=== PATIENT | female | born 1995 | race Caucasian/White ===

== ENCOUNTER → 2016-12-04 | Outpatient (CLI) | payer BC, OTHER ==
[~2016-12-04] MED LIST: BIRTH CONTROL PO; BUSPAR5 MG PO; CLEOCIN HC150 MG/CAP PO; HYDROCODONE LIQUID; KLONOPIN2 MG PO; NO HOME MEDICATIONS; ZOFRAN 4MG T4 MG/TAB PO
== END ==
LOC: BHSO 14:15
DX: F41.1 Generalized anxiety disorder (principal)

== ENCOUNTER → 2017-01-23 | Outpatient (CLI) | payer BC, OTHER | LOC: BHSO 14:33 | DX: F90.0 Attention-deficit hyperactivity disorder, predominantly inattentive type (principal) ==

== ENCOUNTER → 2017-06-26 | Outpatient (CLI) | payer BC ==
[~2017-06-26] MED LIST changes: +BUSPAR10 MG PO; +GLUCOPHAGE XR500 M1 PO; +MOTRIN 600600 MG/TAB PO; +PERCOCET 325 MG1 TA2 PO; +PRENATAL MVI; +TYLENOL 500MG500 MG
== END ==
LOC: BHSO 09:18
DX: F41.1 Generalized anxiety disorder (principal)

== ENCOUNTER 2017-09-09 17:45 | Observation (INO) | payer BC ==
[~2017-09-09] VITALS: Ht 162.6 cm; Wt 68.6 kg
[~2017-09-09 17:45] MED LIST changes: -BUSPAR10 MG PO; -GLUCOPHAGE XR500 M1 PO; -MOTRIN 600600 MG/TAB PO; -PERCOCET 325 MG1 TA2 PO; -PRENATAL MVI; -TYLENOL 500MG500 MG
[2017-09-09] MEDS ORDERED: GLUCOPHAGE XR500 M1 PO (17:51)
[2017-09-09] MEDS ORDERED: BUSPAR10 MG PO (17:52)
[2017-09-09] MEDS ORDERED: TYLENOL 500MG500 MG (18:07)
[2017-09-09 18:46] LABS: COLLECTION METHOD CLEAN CATCH
[2017-09-09 18:49] LABS: BASO % 0.5 % (0.0-2.0); EOS # 0.2 (0.0-0.7); EOS % 1.9 % (0-4.0); GRAN # 5.2 (1.4-6.5); GRAN % 64.4 % (42.2-75.2); HEMATOCRIT 39.8 % (37.0-47.0); HEMOGLOBIN 13.7 g/dl (12.5-16.0); LYMPH # 1.9 (1.2-3.4); LYMPH % 23.1 % (20.0-51.0); MEAN CELL VOLUME 87 fl (80.0-100.0); MEAN CORPUSCULAR HEMOGLOBIN 30 pg (27.0-31.0); MEAN CORPUSCULAR HGB CONC 34 g/dl (33.0-37.0); MEAN PLATELET VOLUME 11.9 fl (7.4-10.4); MONO # 0.8 (0.1-0.6); MONO % 9.9 % (1.7-9.3); PLATELET COUNT 179 K/mm3 (130-400)
[2017-09-09 18:58] LABS: AMORPHOUS CRYSTAL Present /uL; PH 8 (5-8); SQUAMOUS EPITHELIAL 0-2 /hpf; URINE APPEARANCE Cloudy; URINE BACTERIA Rare /hpf; URINE BILIRUBIN Negative (NEGATIVE); URINE BLOOD Negative (NEGATIVE); URINE COLOR Yellow; URINE GLUCOSE Negative (NEGATIVE); URINE KETONE Negative (NEGATIVE); URINE LEUKOCYTE ESTERASE Negative (NEGATIVE); URINE PROTEIN(semi-quant) Negative (NEGATIVE); URINE RBC 0-2 /hpf; URINE UROBILINOGEN Negative (NEGATIVE)
[2017-09-09 19:00] LABS: ADJUSTED CALCIUM 8.9 mg/dL (8.4-10.2); ALBUMIN 4.2 gm/dL (3.5-5.0); BILIRUBIN,TOTAL 0.3 mg/dL (0.0-1.0); CALCIUM 9.1 mg/dL (8.4-10.2); CREATININE, serum 0.65 mg/dL (0.52-1.25); POTASSIUM 3.8 mmol/L (3.4-5.0); TOTAL PROTEIN 6.9 gm/dL (6.4-8.2)
[2017-09-09 21:00] VITALS: BP 121/73; PULSE 85; TEMP 98.2
[2017-09-10] VITALS: BP 106/59; PULSE 74
[2017-09-10 04:00] VITALS: BP 106/51; PULSE 71; TEMP 98.3
[2017-09-10 05:04] LABS: BASO % 0.4 % (0.0-2.0); EOS # 0.1 (0.0-0.7); EOS % 1.9 % (0-4.0); GRAN # 4.7 (1.4-6.5); HEMOGLOBIN 12.4 g/dl (12.5-16.0); LYMPH # 1.9 (1.2-3.4); LYMPH % 24.6 % (20.0-51.0); MEAN CELL VOLUME 88 fl (80.0-100.0); MEAN CORPUSCULAR HEMOGLOBIN 30 pg (27.0-31.0); MEAN CORPUSCULAR HGB CONC 34 g/dl (33.0-37.0); MEAN PLATELET VOLUME 11.5 fl (7.4-10.4); MONO # 0.7 (0.1-0.6); MONO % 9.8 % (1.7-9.3); PLATELET COUNT 161 K/mm3 (130-400); RED BLOOD COUNT 4.19 M/mm3 (4.10-5.30); WHITE BLOOD COUNT 7.5 K/mm3 (4.8-10.8)
[2017-09-10 08:30] VITALS: BP 107/58; PULSE 65; TEMP 98
== END 2017-09-10 13:45 | disposition home or self-care (01) ==
LOC: COL.ER 17:45 → OB 20:37
PROVIDERS: Emergency Medicine; Obstetrics & Gynecology
DX: O26.891 Other specified pregnancy related conditions, first trimester (principal); R10.2 Pelvic and perineal pain; O99.341 Other mental disorders complicating pregnancy, first trimester; F41.9 Anxiety disorder, unspecified; E28.2 Polycystic ovarian syndrome; Z90.49 Acquired absence of other specified parts of digestive tract; Z87.891 Personal history of nicotine dependence; Z83.3 Family history of diabetes mellitus; Z82.49 Family history of ischemic heart disease and other diseases of the circulatory system; Z80.3 Family history of malignant neoplasm of breast
CPT/HCPCS: G0378; J1170; J3010; J7030

== ENCOUNTER 2018-03-19 23:54 | Outpatient (CLI) | payer BC, MEDICAID ==
[~2018-03-19] VITALS: Ht 165.1 cm; Wt 79.5 kg
[~2018-03-19 23:54] MED LIST changes: +BUSPAR10 MG PO; +GLUCOPHAGE XR500 M1 PO; +TYLENOL 500MG500 MG
[2018-03-20 00:15] VITALS: BP 128/79; PULSE 85; TEMP 98.4
[2018-03-20 00:30] VITALS: BP 112/62; PULSE 80
[2018-03-20 01:29] VITALS: BP 128/79; PULSE 85; TEMP 98.4
== END 2018-03-20 01:13 | disposition home or self-care (01) ==
LOC: LDRO 23:54
DX: O62.9 Abnormality of forces of labor, unspecified (principal); Z3A.31 31 weeks gestation of pregnancy

== ENCOUNTER 2018-04-11 20:27 | Outpatient (CLI) | payer BC, MEDICAID ==
[~2018-04-11] VITALS: Ht 162.6 cm; Wt 82.3 kg
[2018-04-11] MEDS ORDERED: PRENATAL MVI (20:53)
[2018-04-11 21:30] VITALS: BP 122/69; PULSE 96; TEMP 97.5
[2018-04-11 22:21] LABS: COLLECTION METHOD CLEAN CATCH
[2018-04-11 22:26] LABS: PH 7 (5-8); SQUAMOUS EPITHELIAL 0-2 /hpf; URINE APPEARANCE Clear; URINE BACTERIA Rare /hpf; URINE BILIRUBIN Negative (NEGATIVE); URINE BLOOD Negative (NEGATIVE); URINE COLOR Colorless; URINE GLUCOSE Negative (NEGATIVE); URINE KETONE Negative (NEGATIVE); URINE LEUKOCYTE ESTERASE Negative (NEGATIVE); URINE NITRATE Negative (NEGATIVE); URINE PROTEIN(semi-quant) Negative (NEGATIVE); URINE RBC None Seen /hpf; URINE UROBILINOGEN Negative (NEGATIVE); URINE WBC 0-2 /hpf
[2018-04-11 22:31] VITALS: BP 119/66; PULSE 96
== END 2018-04-11 22:30 | disposition home or self-care (01) ==
LOC: LDRO 20:27
PROVIDERS: Obstetrics & Gynecology
DX: O99.89 Other specified diseases and conditions complicating pregnancy, childbirth and the puerperium (principal); R10.9 Unspecified abdominal pain; Z3A.34 34 weeks gestation of pregnancy

== ENCOUNTER 2018-04-29 15:24 | Inpatient (IN) | payer BC, MEDICAID ==
[2018-04-29] VITALS (19 sets, daily range): BP systolic 111–137; BP diastolic 57–78; PULSE 70–108; TEMP 98.3–98.6
[~2018-04-29] VITALS: Ht 162.6 cm; Wt 85.0 kg
[~2018-04-29 15:24] MED LIST changes: +PRENATAL MVI
[2018-04-29 16:47] LABS: BASO % 0.1 % (0.0-2.0); EOS % 0.4 % (0-4.0); GRAN # 7.6 (1.4-6.5); GRAN % 73.8 % (42.2-75.2); HEMOGLOBIN 10.7 g/dl (12.5-16.0); LYMPH # 1.5 (1.2-3.4); LYMPH % 14.6 % (20.0-51.0); MEAN CELL VOLUME 79 fl (80.0-100.0); MEAN CORPUSCULAR HEMOGLOBIN 26 pg (27.0-31.0); MEAN CORPUSCULAR HGB CONC 32 g/dl (33.0-37.0); MEAN PLATELET VOLUME 12.5 fl (7.4-10.4); MONO # 1.1 (0.1-0.6); MONO % 10.2 % (1.7-9.3); PLATELET COUNT 179 K/mm3 (130-400); RED BLOOD COUNT 4.17 M/mm3 (4.10-5.30); REDCELL DISTRIBUTION WIDTH-CV 14.4 % (11.5-14.5)
[2018-04-30 01:35] VITALS: BP 113/67; PULSE 75; TEMP 98.9
[2018-04-30 05:20] VITALS: BP 102/53; PULSE 63; TEMP 97.9
[2018-04-30 06:56] LABS: HEMOGLOBIN 10.3 g/dl (12.5-16.0)
[2018-04-30 07:08] LABS: HEMATOCRIT 32.3 % (37.0-47.0)
[2018-04-30 08:45] VITALS: BP 103/53; PULSE 79; TEMP 97.6
[2018-04-30 12:45] VITALS: BP 105/62; PULSE 63; TEMP 97.5
[2018-04-30 15:45] VITALS: BP 101/53; PULSE 79; TEMP 98.2
[2018-04-30 22:10] VITALS: BP 100/56; PULSE 67; TEMP 97.9
[2018-05-01 07:50] VITALS: BP 120/69; PULSE 90; TEMP 97.7
[2018-05-01] MEDS ORDERED: PERCOCET 325 MG1 TA2 PO (08:28)
[2018-05-01] MEDS ORDERED: MOTRIN 600600 MG/TAB PO (08:28)
== END 2018-05-01 14:25 | disposition home or self-care (01) | DRG 766 ==
LOC: LDRO 15:24 → LDR 16:37 → OB 16:37
PROVIDERS: Obstetrics & Gynecology
PROC: 10D00Z1 Extraction of Products of Conception, Low, Open Approach (ICD-10-PCS; principal; 2018-04-29)
DX: O34.211 Maternal care for low transverse scar from previous cesarean delivery (principal); Z3A.37 37 weeks gestation of pregnancy; Z37.0 Single live birth; O75.82 Onset (spontaneous) of labor after 37 completed weeks of gestation but before 39 completed weeks gestation, with delivery by (planned) cesarean section; O34.03 Maternal care for unspecified congenital malformation of uterus, third trimester
CPT/HCPCS: J0690; J1100; J1885; J2250; J2370; J2405; J2590; J3010; J7120

== ENCOUNTER → 2019-01-07 | Outpatient (CLI) | payer BC ==
[~2019-01-07] MED LIST changes: +MOTRIN 600600 MG/TAB PO; +PERCOCET 325 MG1 TA2 PO
== END ==
LOC: BHSO 10:22
DX: F90.0 Attention-deficit hyperactivity disorder, predominantly inattentive type (principal)
CPT/HCPCS: G0463

== ENCOUNTER → 2019-02-11 | Outpatient (CLI) | payer BC | LOC: BHSO 09:36 | DX: F31.81 Bipolar II disorder (principal) | CPT/HCPCS: G0463 ==

== ENCOUNTER → 2019-03-11 | Outpatient (CLI) | payer BC | LOC: BHSO 09:57 | DX: F31.81 Bipolar II disorder (principal) | CPT/HCPCS: G0463 ==

== ENCOUNTER → 2019-05-13 | Outpatient (CLI) | payer BC | LOC: BHSO 11:10 | DX: F31.81 Bipolar II disorder (principal) | CPT/HCPCS: G0463 ==

== ENCOUNTER → 2019-10-28 | Outpatient (CLI) | payer BC | LOC: BHSO 09:50 | DX: F31.81 Bipolar II disorder (principal) | CPT/HCPCS: G0463 ==

== ENCOUNTER → 2020-04-27 | Outpatient (CLI) | payer BC | LOC: BHSO 09:00 | DX: F31.81 Bipolar II disorder (principal) | CPT/HCPCS: G0463 ==

== ENCOUNTER 2021-02-06 09:35 | Emergency (ER) | payer BC ==
[~2021-02-06] VITALS: Ht 162.6 cm; Wt 69.1 kg
[2021-02-06 09:51] VITALS: BP 143/70; TEMP 97.9
[2021-02-06 10:35] LABS: BASO % 0.2 % (0.0-2.0); EOS # 0.1 (0.0-0.7); EOS % 1.1 % (0-4.0); GRAN # 9.1 (1.4-6.5); GRAN % 88.3 % (42.2-75.2); HEMOGLOBIN 12.3 g/dl (12.5-16.0); LYMPH # 0.5 (1.2-3.4); LYMPH % 4.9 % (20.0-51.0); MEAN CELL VOLUME 82 fl (80.0-100.0); MEAN CORPUSCULAR HEMOGLOBIN 25 pg (27.0-31.0); MEAN CORPUSCULAR HGB CONC 31 g/dl (33.0-37.0); MEAN PLATELET VOLUME 11.9 fl (7.4-10.4); MONO # 0.5 (0.1-0.6); MONO % 5.2 % (1.7-9.3); PLATELET COUNT 216 K/mm3 (130-400); RED BLOOD COUNT 4.87 M/mm3 (4.10-5.30); REDCELL DISTRIBUTION WIDTH-CV 13.8 % (11.5-14.5)
[2021-02-06 10:50] LABS: ALBUMIN 4.3 gm/dL (3.5-5.0); BILIRUBIN,TOTAL 0.2 mg/dL (0.0-1.0); CALCIUM 8.8 mg/dL (8.4-10.2); CREATININE, serum 0.72 (0.52-1.25); POTASSIUM 4.5 mmol/L (3.4-5.0); TOTAL PROTEIN 7.8 gm/dL (6.4-8.2)
[2021-02-06] MEDS ORDERED: ZOFRAN ODT4 MG PO (11:13)
[2021-02-06 11:30] VITALS: PULSE 84
== END 2021-02-06 11:30 | disposition home or self-care (01) ==
LOC: COL.ER 09:35
PROVIDERS: Emergency Medicine
DX: R11.2 Nausea with vomiting, unspecified (principal); R19.7 Diarrhea, unspecified; Z88.8 Allergy status to other drugs, medicaments and biological substances; Z87.891 Personal history of nicotine dependence
CPT/HCPCS: J1200; J1885; J2765; J7030

== ENCOUNTER → 2021-02-11 | Outpatient (CLI) | payer BC ==
[~2021-02-11] MED LIST changes: +ZOFRAN ODT4 MG PO
== END ==
LOC: COL.RAD 07:38
DX: R10.84 Generalized abdominal pain (principal); R11.2 Nausea with vomiting, unspecified; Z90.49 Acquired absence of other specified parts of digestive tract
CPT/HCPCS: Q9967